=== PATIENT | male | born 1980 | race Caucasian/White ===

== ENCOUNTER 2016-08-18 07:18 | Day surgery (SDC) | payer BC ==
[2016-08-14 08:32] LABS: BASOPHILS 0.8 %; BASOPHILS ABSOLUTE 0.04 10/3/uL (0.0-0.16); EOSINOPHILS 5.7 %; EOSINOPHILS ABSOLUTE 0.27 10/3/uL (0.0-0.53); HEMATOCRIT 41.3 % (40.0-51.0); HEMOGLOBIN 14.2 g/dL (13.6-17.8); LYMPHOCYTES 34.4 %; LYMPHOCYTES ABSOLUTE 1.64 10/3/uL (0.67-4.30); MEAN CORPUS HGB CONC 34.4 g/dL (32.0-36.0); MEAN CORPUSCULAR HEMOGLOB 30.8 pg (26.0-34.0); MEAN CORPUSCULAR VOLUME 89.6 fL (80-100); MEAN PLATELET VOLUME 10.5 fL (9.2-13.0); MONOCYTES 8.6 %; MONOCYTES ABSOLUTE 0.41 10/3/uL (0.21-1.20); NEUTROPHILS 50.5 %; NEUTROPHILS ABSOLUTE 2.41 10/3/uL (2.02-8.40); PLATELET COUNT 212 10/3/uL (150-400); RBC DISTRIBUTION WIDTH 13.2 % (12.0-16.0); RED CELL COUNT 4.61 10/6/uL (4.7-6.1); WHITE BLOOD CELLS 4.8 10/3/uL (4.5-10.5)
[2016-08-14 08:39] LABS: MANUAL DIFF NO %
[2016-08-14 08:45] LABS: BUN (BLOOD UREA NITROGEN) 16 MG/DL (6-23); CALCIUM, SERUM 8.9 MG/DL (8.5-10.4); CHLORIDE, SERUM 107 MMOL/L (96-112); CO2 (CARBON DIOXIDE) 27 MMOL/L (24-34); CREATININE 1.02 MG/DL (0.70-1.30); GFR AFRICAN AMERICAN 108 ML/MIN (>=60); GFR NON AFRICAN AMERICAN 93 ML/MIN (>=60); GLUCOSE, SERUM 78 MG/DL (60-99); POTASSIUM, SERUM 3.8 MMOL/L (3.5-5.3); SODIUM, SERUM 143 MMOL/L (135-148)
--- NOTE | ~2016-08-18 | OP ---
Record Of Operation [facility] [address]. [address] NAME: CHANCE GIBSON : 78 STATUS : REG [facility] [place] PAT#: [id number] AGE: 36 ADM/REG DATE : 08/18/16 MR#: [id number] REPORT SERV DATE: 08/18/16 DICTATED BY: KENDY SAAB DATE: 08/18/16 REPORT STATUS : Draft TRANSCRIBED BY: SHARRI DATE: 08/18/16 DATE OF PROCEDURE: 08/18/2016 SERVICE: Otolaryngology. PREOPERATIVE DIAGNOSES: 1. Chronic bilateral frontal sinusitis. 2. Chronic bilateral maxillary sinusitis. 3. Deviated nasal septum. 4. Acquired nasal deformity. 5. Bilateral turbinate inferior turbinate hypertrophy. POSTOPERATIVE DIAGNOSES: 1. Chronic bilateral frontal sinusitis. 2. Chronic bilateral maxillary sinusitis. 3. Deviated nasal septum. 4. Acquired nasal deformity. 5. Bilateral turbinate inferior turbinate hypertrophy. PROCEDURES: 1. Repair of nasal vestibular stenosis. 2. Septoplasty. 3. Bilateral inferior turbinate reduction and outfracture. 4. Eure of septal cartilage for use as a graft in the nose. 5. Bilateral endoscopic frontal sinusotomy. 6. Bilateral endoscopic maxillary sinusotomy. ANESTHESIA: General endotracheal anesthesia. TOTAL ESTIMATED BLOOD LOSS: 5 mL. COMPLICATIONS: None. SPECIMENS: Nasal bone and cartilage. FINDINGS: The patient had a large posterior septal spur that was abutting and blocking 100% of the nasal airway on the left. He also had bilateral internal nasal valve insufficiency due to weakness of the upper lateral cartilages and inferior turbinate hypertrophy. In addition, he also had chronic facial pressure and headaches due to chronic narrowing of the frontal sinus and maxillary sinus outflow tracts. STATEMENT OF MEDICAL NECESSITY: This is a 36-year-old male who is a chronic mouth breather, has a morning dry mouth, reflux, and poor sleep. His is especially concerned about his mouth breathing at night. He has an otherwise thin gentleman, does not have the body habitus of a sleep apnea type patient. The remainder of his anatomy was not such that there was an oropharyngeal or hypopharyngeal area of obstruction, and I recommended the above Record Of Operation [facility] [address] [place]. [address] NAME: CHANCE GIBSON : 78 STATUS : REG [facility] [place] PAT#: [id number] AGE: 36 ADM/REG DATE : 08/18/16 MR#: [id number] REPORT SERV DATE: 08/18/16 DICTATED BY: KENDY SAAB DATE: 08/18/16 REPORT STATUS : Draft TRANSCRIBED BY: SHARRI DATE: 08/18/16 procedures. STATEMENT OF OPERATION: The patient was brought to the operating room in supine position, transferred over to the operating room table. All pressure points were padded and general endotracheal anesthesia was established. The nose was prepared first by trimming the nasal hairs. Next, 4% cocaine-soaked pledgets were placed in both sides of the nose. The skin of the nose was then cleansed with alcohol and injected with 1% lidocaine with epinephrine totaling 6 mL. This was injected into the septum and the skin soft tissue envelope of the nose bilaterally. The patient was then toweled off for the sinus portion of the procedure. The pledgets were removed. A 0 degree endoscope was placed into the right side of the nose. The middle turbinate was gently medialized with a [place] elevator. Injections of 1% lidocaine with epinephrine were then performed at the root of the middle turbinate, the face of the middle turbinate, and the lateral nasal wall. This process was repeated for the left side. Next, a 45-degree scope was advanced into the nose and the Acclarent RELIEVA Balloon Sinuplasty System with the frontal sinus attachment was put in place under direct visualization and with transillumination, the frontal sinus was cannulated accurately, two inflations to 12 atmospheres of three seconds each were performed. The 45-degree scope was then used to confirm outflow tract had been dilated. This process was repeated for the left frontal sinus with the same result. Next, the same system was used to then cannulate the right maxillary sinus. Again two separate inflations were carried out to 12 atmospheres for three seconds each. Again, had good blanching and anteriorilization of the uncinate process indicating proper placement. The transillumination was also used to confirm placement in the maxillary sinus. This concluded the sinus portion. This was done for the right and the left side maxillary sinuses. The patient was then redraped and prepped for the nasal portion of the case. An inverted transcolumellar incision was marked out with a surgical marking pen. Bilateral marginal incisions were made with a 15 blade and the transcolumellar incision was made with a #11 blade. Then, using Woodward dissecting scissors, the columellar flap was elevated in the submuscular plane and connected to the marginal incisions bilaterally. The skin and soft tissue envelope of the nose was then elevated over the lower and upper lateral cartilages completely exposing both. Next, the anterior septal angle was developed with a 15 blade. The septal flaps in the subperichondrial plane were developed with Minor and Woodward elevators. The upper lateral cartilages were sharply divided from the dorsal septum with a #15 blade. Then, the mucoperiosteum was elevated off the bony nasal septum. There was a large intake cartilaginous spur and bony nasal spur going to the left, these were carefully dissected out. Then, the bony and cartilaginous junction was divided sharply with a Kwan elevator. The superior cut was made along this bony nasal cartilage with Son double-action scissors. Then, using a 2 mm osteotome, the septal spur was removed and placed as a specimen. Then, maintaining 1.5 cm strut, a piece of quadrangular cartilage was harvested with a D-knife. This also incorporated the spur along the floor. This was placed on the back table. A 15 blade was then used to carve two senior electrical controls engineer grafts and one columellar strut graft. The senior electrical controls engineer grafts were then inserted between the upper lateral cartilages and the dorsal septal cartilage and secured with three 5-0 PDS interrupted horizontal mattress sutures. Next, this soft tissue envelope was created between the medial crura of the lower lateral cartilage and a columellar strut graft was placed. Then, with the camp assistant holding the tips in appropriate projection and rotation, a transcolumellar suture incorporating both medial crura and the columellar strut graft was performed with a 5-0 PDS suture. Next, both inferior turbinates were injected Record Of Operation [address] [address] NAME: CHANCE GIBSON : 78 STATUS : REG [facility] [place] PAT#: [id number] AGE: 36 ADM/REG DATE : 08/18/16 MR#: [id number] REPORT SERV DATE: 08/18/16 DICTATED BY: KENDY SAAB DATE: 08/18/16 REPORT STATUS : Draft TRANSCRIBED BY: SHARRI DATE: 08/18/16 with 1% lidocaine with epinephrine. Then, using a microdebrider, they were reduced submucosally. Once this was completed, they were outfractured with a Boies elevator. Next, this columellar skin was closed with interrupted 6-0 fast absorbing gut sutures followed by the intranasal incisions were closed with 4-0 chromic gut sutures. Mason splints covered in bacitracin then were inserted in each side of the nose and secured to the anterior septum with a 2-0 nylon stitch. Finally, the skin of the face and nose were cleansed with warm saline and dried. Mastisol solution was applied to the dorsum of the nose followed by modified Steri-Strips and an Aquaplast splint. The stomach and oropharynx were then suctioned with an orogastric tube. The patient was turned back over to Anesthesia, where he awoke, was extubated, and transferred to the PACU in stable condition. PS/SHARRI Kendy Saab MD / [id number] CC: MD Pravin Key M.D.
[~2016-08-18 07:18] MED LIST: MULTIPLE VIT PO
== END 2016-08-18 23:59 | disposition home or self-care (01) ==
LOC: MSC 07:18
PROVIDERS: Otolaryngology
PROC: 09BT4ZZ Excision of Left Frontal Sinus, Percutaneous Endoscopic Approach (ICD-10-PCS; 2016-08-18)
PROC: 09BR4ZZ Excision of Left Maxillary Sinus, Percutaneous Endoscopic Approach (ICD-10-PCS; 2016-08-18)
PROC: 09BQ4ZZ Excision of Right Maxillary Sinus, Percutaneous Endoscopic Approach (ICD-10-PCS; 2016-08-18)
PROC: 09SM4ZZ Reposition Nasal Septum, Percutaneous Endoscopic Approach (ICD-10-PCS; principal; 2016-08-18 08:45)
PROC: 09BS4ZZ Excision of Right Frontal Sinus, Percutaneous Endoscopic Approach (ICD-10-PCS; 2016-08-18 08:45)
DX: J32.1 Chronic frontal sinusitis (principal); J32.0 Chronic maxillary sinusitis; J34.2 Deviated nasal septum; M95.0 Acquired deformity of nose; J34.3 Hypertrophy of nasal turbinates; G43.909 Migraine, unspecified, not intractable, without status migrainosus; Z98.890 Other specified postprocedural states
CPT/HCPCS: 80048; 85025; 88300; 93005; A9270-GY; C1726; J0690; J2250; J2270; J2405; J2710; J3010